=== PATIENT | male | born 1995 | race Caucasian/White ===

== ENCOUNTER 2019-08-17 14:45 | Emergency (ER) | payer OTHER ==
--- NOTE | 2019-08-17 15:02 | UC ---
Lower Extremity/Ankle HPI - HPI Summary HPI Summary: 24 yo male presents with LEFT knee pain. He tells me that on 08/14 he was playing softball and jumped up to try and catch a fly ball - landed awkwardly on his left knee and felt a pop. The next day noticed a bruised sore spot to his medial knee. Since that time his knee feels swollen and like it is going to "give out". The bruised area has been improving. Denies numbness or tingling. - History of Current Complaint Stated Complaint: LEFT LEG INJURY Time Seen by Provider: 08/17/19 15:01 Hx Obtained From: Patient Onset/Duration: Sudden Onset Severity Initially: Mild Severity Currently: Mild Pain Intensity: 3 Pain Scale Used: 0-10 Numeric - Allergies/Home Medications Allergies/Adverse Reactions: Allergies Allergy/AdvReac Type Severity Reaction Status Date / Time Penicillins Allergy Hives Verified 08/17/19 15:11 PMH/Surg Hx/FS Hx/Imm Hx - Additional Past Medical History Additional PMH: None - Surgical History Surgical History: None - Family History Known Family History: Positive: Non-Contributory - Social History Occupation: Student Lives: With Family Alcohol Use: Occasionally Substance Use Type: None Smoking Status (MU): Never Smoked Tobacco Review of Systems All Other Systems Reviewed And Are Negative: No Constitutional: Positive: Negative Skin: Positive: Negative Respiratory: Positive: Negative Cardiovascular: Positive: Negative Musculoskeletal: Positive: Other: - Left knee injury Neurological: Positive: Negative Psychological: Positive: Negative Physical Exam - Summary Physical Exam Summary: GENERAL: NAD. WDWN. No pain distress. SKIN: No rashes, sores, lesions, or open wounds. CHEST: No accessory muscle use. Breathing comfortably and in no distress. CV: Pulses intact PT and DP. Cap refill <2seconds MSK: LEFT KNEE: FROM. Mild edema about knee. Faint erythema/ecchymosis to medial aspect. Strength 5/5. No patella apprehension. Negative Kristopher, A/P drawer, José Luis, and varus/valgus stress. NEURO: Alert. Sensations intact and symmetric B/L LEs PSYCH: Age appropriate behavior. Triage Information Reviewed: Yes Vital Signs: Vital Signs: Temp Pulse Resp BP Pulse Ox 98.8 F 67 16 125/78 98 08/17/19 15:07 08/17/19 15:07 08/17/19 15:07 08/17/19 15:07 08/17/19 15:07 Vital Signs Reviewed: Yes Diagnostics - Radiology knee Radiology Interpretation Completed By: Radiologist Summary of Radiographic Findings: IMPRESSION: No fracture of left knee is noted. Lower Extremity Course/Dx - Course Course Of Treatment: XR as above. Suspect internal derangement of the knee. Advised to RICE and will refer him to Sport's medicine for further eval - Differential Dx/Diagnosis Provider Diagnosis: Knee strain Discharge ED - Sign-Out/Discharge Documenting (check all that apply): Patient Departure All imaging exams completed and their final reports reviewed: Yes - Discharge Plan Condition: Stable Disposition: HOME Prescriptions: Lidocaine 4% TOPICAL* 1 applic TOPICAL BID #1 tube Patient Education Materials: Knee Sprain (DC) Forms: *School Release Referrals: No Primary Care Phys,NOPCP [Primary Care Provider] - Lloyd Meehan MD [Medical Doctor] - As Soon As Possible Additional Instructions: If you develop a fever, shortness of breath, chest pain, new or worsening symptoms - please call your PCP or go to the ED immediately. 1) The X-Ray of your knee was normal today 2) Please rest, Ice, and elevate your knee intermittently throughout the day 3) May take tylenol/ibuprofen as directed for discomfort 4) I recommend that you call Orthopedics at the number below to schedule an appointment for later this week for a recheck - Billing Disposition and Condition Condition: STABLE Disposition: Home
[2019-08-17 15:11] VITALS: BP 125/78
== END 2019-08-17 16:01 | disposition home or self-care (01) ==
LOC: UCCORT 14:45
DX: S86.812A Strain of other muscle(s) and tendon(s) at lower leg level, left leg, initial encounter (principal); Z88.0 Allergy status to penicillin; X50.0XXA Overexertion from strenuous movement or load, initial encounter; Y93.64 Activity, baseball; Y92.9 Unspecified place or not applicable
CPT/HCPCS: 99201; G0463

== ENCOUNTER 2019-12-27 11:33 | Emergency (ER) | payer OTHER ==
[2019-12-27 11:49] VITALS: BP 118/83
--- NOTE | 2019-12-27 12:14 | UC ---
Upper Extremity HPI - HPI Summary HPI Summary: 24-year-old male comes in with a chief complaint of left elbow pain. This been going on for about 5 weeks. No specific trauma. Pain is more on the medial aspect of the elbow. It radiates down to the left wrist. Activity makes it worse. Was doing a lot of snow shoveling 2 weeks ago and that made it worse. Used ice on it which did improve it at one time. No complaint of any weakness or numbness. Patient did report some decreased range of motion in to the eyes to the range of motion returned normal. - History of Current Complaint Chief Complaint: UCUpperExtremity Stated Complaint: R ARM PAIN Time Seen by Provider: 12/27/19 11:41 Pain Intensity: 4 - Allergies/Home Medications Allergies/Adverse Reactions: Allergies Allergy/AdvReac Type Severity Reaction Status Date / Time Penicillins Allergy Hives Verified 12/27/19 11:50 Home Medications: Home Medications NK [No Home Medications Reported] 12/27/19 [History Confirmed 12/27/19] PMH/Surg Hx/FS Hx/Imm Hx Previously Healthy: Yes - Surgical History Surgical History: None - Family History Known Family History: Positive: Non-Contributory - Social History Alcohol Use: Occasionally Substance Use Type: None Smoking Status (MU): Never Smoked Tobacco Review of Systems All Other Systems Reviewed And Are Negative: Yes Constitutional: Positive: Negative Skin: Positive: Negative Eyes: Positive: Negative ENT: Positive: Negative Respiratory: Positive: Negative Cardiovascular: Positive: Negative Gastrointestinal: Positive: Negative Motor: Positive: Other - see hpi Neurovascular: Positive: Negative Musculoskeletal: Positive: Other: - see hpi Neurological/Mental Status: Positive: Negative Psychological: Positive: Negative Is Patient Immunocompromised?: No Physical Exam Triage Information Reviewed: Yes Appearance: Well-Appearing, No Pain Distress, Well-Nourished Vital Signs: Initial Vital Signs Temp 98.8 F 12/27/19 11:42 Pulse 94 12/27/19 11:42 Resp 18 12/27/19 11:42 BP 118/83 12/27/19 11:42 Pulse Ox 97 12/27/19 11:42 Vital Signs Reviewed: Yes Eye Exam: Normal Eyes: Positive: Conjunctiva Clear Neck: Positive: Supple Respiratory: Positive: No respiratory distress Musculoskeletal: Positive: Other: Neurological: Positive: Alert Psychological: Positive: Age Appropriate Behavior Skin Exam: Normal Upper Extremity Course/Dx - Course Course Of Treatment: Retail Sales Clerk: Delvin Allan Daniel, ([id number]) Restaurant Mgr: Doris DOTY) Report Date: 12/27/2019 12:32:00 Report Status: Final ====== Start of Report Content Patient Name: DELMIS CAMPBELL Ordering Physician: Ra Tineo MD Acct.#: [id number] : 1995 Age: 24 Sex: M Location: [facility] Exam Date: 12/27/19 1153 ADM Status: REG ER Order Information: ELBOW LEFT 3+VWS Accession Number: [id number] CPT: 13994 HISTORY: PAIN/GRINDING SENSATION . COMPARISONS: None relevant available at the time of dictation. VIEWS: 4, Frontal, lateral, and oblique views the left elbow FINDINGS: BONE DENSITY: Normal. BONES: There is no displaced fracture. JOINTS: There is no arthropathy. ALIGNMENT: There is no dislocation. SOFT TISSUES: Unremarkable. OTHER FINDINGS: None. IMPRESSION: NO ACUTE OSSEOUS INJURY. IF SYMPTOMS PERSIST, RECOMMEND REPEAT IMAGING. <Electronically signed by Delvin Allan MD in OV> 12/27/191227 Dictated By: Delvin Allan MD Dictated Date/Time: 12/27/191226 Transcribed Date/Time: 12/27/191226 Copy to: CC:No Primary Care Phys,NOPCP ; Ra Tineo MD Imaging - [facility] [address] [place] [address] [place] [address] ph ([phone]) ph ([phone]) ([phone]) End of Report Content I discussed the x-rays with the patient. No fracture seen. Most probable diagnosis is medial epicondylitis. Discussed ice ibuprofen and also getting a golfer's elbow brace. Plan is to follow-up with sports medicine. - Differential Dx/Diagnosis Provider Diagnosis: Elbow pain, left Discharge ED - Sign-Out/Discharge Documenting (check all that apply): Patient Departure All imaging exams completed and their final reports reviewed: Yes - Discharge Plan Condition: Stable Disposition: HOME Patient Education Materials: Elbow Sprain (ED) Referrals: [facility] [Provider Group] Additional Instructions: FOLLOW UP WITH SPORTS MEDICINE. You may have medial epicondylitis or Golfer's elbow. He should ice the area take ibuprofen as directed and also obtain a golfer's elbow brace. GET REEVALUATED SOONER IF NOT IMPROVED OR WORSE OR ANY QUESTIONS OR CONCERNS. - Billing Disposition and Condition Condition: STABLE Disposition: Home
== END 2019-12-27 12:41 | disposition home or self-care (01) ==
LOC: UCCORT 11:33
DX: M25.522 Pain in left elbow (principal); Z88.0 Allergy status to penicillin
CPT/HCPCS: 99211; G0463